=== PATIENT | male | born 1945 | race Caucasian/White ===

== ENCOUNTER 2017-04-06 16:31 | Inpatient (IN) | payer OTHER ==
[~2017-04-06] VITALS: Ht 193 cm; Wt 117.1 kg
[2017-04-06 17:24] LABS: BASOPHIL % 0.3 % (0-2); PLATELET COUNT 158 x10^3mcL (130-400); RED CELL DISTRIBUTION WIDTH 13.2 % (11.5-14.5)
[2017-04-06 17:33] LABS: ALBUMIN 3.6 g/dL (3.4-5.0); ALKALINE PHOSPHATASE 72 U/L (46-116); ALT/SGPT 38 U/L (16-63); AST/SGOT 21 U/L (15-37); BILIRUBIN TOTAL 0.44 mg/dL (0.20-1.00); CARBON DIOXIDE 27.5 mmol/L (21-32); CHLORIDE SERUM 106 mmol/L (98-107); CHOLESTEROL 152 mg/dL (<200); CHOLESTEROL/HDL RATIO 3.6; CREATININE SERUM 1.2 mg/dL (0.7-1.3); GLUCOSE SERUM 148 mg/dL (74-106); HDL CHOLESTEROL 42 mg/dL (40-60); MAGNESIUM 1.8 mg/dL (1.8-2.4); POTASSIUM SERUM 4.1 mmol/L (3.5-5.1); SODIUM SERUM 141 mmol/L (136-145); TOTAL PROTEIN, SERUM 7.2 g/dL (6.4-8.2); TRIGLYCERIDES 152 mg/dL (<150)
[2017-04-06 17:37] LABS: CALCIUM 8.7 mg/dL (8.5-10.1)
[2017-04-06 20:20] LABS: PHOSPHOROUS 3.4 mg/dL (2.5-4.9)
[2017-04-06 20:30] LABS: T3 TOTAL 1.12 ng/mL
[2017-04-06 20:31] LABS: FREE T4 0.9 ng/dL (0.76-1.46); FREE THYROXINE INDEX 2.6 ug/dL (1.4-4.5); T4(THYROXINE) 7.3 ug/dL (4.7-13.3)
[2017-04-06 20:43] VITALS: BP 187/112
[2017-04-06] MEDS ORDERED: COSOPT OCUMETER10 ML OU (22:00)
[2017-04-06] MEDS ORDERED: BETHANECHOL CHL25 MG PO (22:06)
[2017-04-06] MEDS ORDERED: KETOROLAC TROMET5 M1 OU (22:08)
[2017-04-06] MEDS ORDERED: LATANOPROST2.5 ML OU (22:09)
[2017-04-06] MEDS ORDERED: LISINOPRIL40 MG PO (22:12)
[2017-04-06] MEDS ORDERED: FLO4 PO (22:12)
[2017-04-06] MEDS ORDERED: ATORVASTATIN CA40 M1 PO (22:13)
[2017-04-06] MEDS ORDERED: CARVEDILOL6.25 M1 PO (22:13)
[2017-04-06] MEDS ORDERED: FINASTERIDE5 M1 PO (22:14)
[2017-04-06 22:57] VITALS: BP 163/102
[2017-04-07 04:07] LABS: microscopic required? YES; urine erythrocyte NEGATIVE (NEGATIVE)
[2017-04-07 06:02] VITALS: BP 149/90
[2017-04-07 07:58] LABS: BASOPHIL % 0.4 % (0-2); PLATELET COUNT 146 x10^3mcL (130-400); RED CELL DISTRIBUTION WIDTH 12.8 % (11.5-14.5)
[2017-04-07 09:11] VITALS: BP 153/96
[2017-04-07 11:19] LABS: CALCIUM 8.3 mg/dL (8.5-10.1); CARBON DIOXIDE 24.8 mmol/L (21-32); CHLORIDE SERUM 109 mmol/L (98-107); CREATININE SERUM 1.2 mg/dL (0.7-1.3); GLUCOSE SERUM 139 mg/dL (74-106); MAGNESIUM 1.8 mg/dL (1.8-2.4); PHOSPHOROUS 3.1 mg/dL (2.5-4.9); POTASSIUM SERUM 3.9 mmol/L (3.5-5.1); SODIUM SERUM 143 mmol/L (136-145)
[2017-04-07 13:20] VITALS: BP 126/83
[2017-04-07 17:32] VITALS: BP 146/89
[2017-04-07 20:48] VITALS: BP 137/85
[2017-04-08 05:42] VITALS: BP 132/90
[2017-04-08 09:15] VITALS: BP 145/95
[2017-04-08] MEDS ORDERED: COREG12.5 MG PO (11:51)
[2017-04-08] MEDS ORDERED: BAY PO (11:51)
[2017-04-08 12:01] VITALS: BP 145/95
== END 2017-04-08 12:28 | disposition home or self-care (01) | DRG 305 ==
LOC: ED 16:31 → DU 19:45
PROVIDERS: Emergency Medicine; Family Medicine; ADMIT Family Medicine
DX: I16.0 Hypertensive urgency (principal); D68.69 Other thrombophilia; J98.11 Atelectasis; I67.4 Hypertensive encephalopathy; E11.65 Type 2 diabetes mellitus with hyperglycemia; E78.1 Pure hyperglyceridemia; E66.9 Obesity, unspecified; H40.9 Unspecified glaucoma; Z68.31 Body mass index [BMI] 31.0-31.9, adult; Z85.030 Personal history of malignant carcinoid tumor of large intestine
CPT/HCPCS: 83880; 84439; 97116-GP; J0696; J3490; J7030; J8597; Q0092

== ENCOUNTER 2017-04-16 21:45 | Emergency (ER) | payer OTHER ==
[~2017-04-16] VITALS: Ht 193 cm; Wt 116.6 kg
[~2017-04-16 21:45] MED LIST: ATORVASTATIN CA40 M1 PO; BAY PO; BETHANECHOL CHL25 MG PO; CARVEDILOL6.25 M1 PO; COREG12.5 MG PO; COSOPT OCUMETER10 ML OU; FINASTERIDE5 M1 PO; FLO4 PO; KETOROLAC TROMET5 M1 OU; LATANOPROST2.5 ML OU; LISINOPRIL40 MG PO
[2017-04-17 02:34] VITALS: BP 148/100
== END 2017-04-17 02:34 | disposition home or self-care (01) ==
LOC: ED 21:45
DX: I10 Essential (primary) hypertension (principal); E11.9 Type 2 diabetes mellitus without complications; Z79.899 Other long term (current) drug therapy